=== PATIENT | female | born 1965 | race Caucasian/White ===

== ENCOUNTER 2018-01-08 14:39 | Emergency (ER) | payer OTHER ==
[2018-01-08] MEDS: IBUPROFEN 600 MG TAB PO (16:29)
== END 2018-01-08 17:15 | disposition home or self-care (01) ==
LOC: FTE 14:39
DX: B34.9 Viral infection, unspecified (principal)
CPT/HCPCS: 71045; 87400; 99283-25

== ENCOUNTER 2018-01-12 15:03 | Emergency (ER) | payer OTHER | END 2018-01-12 20:38 | disposition home or self-care (01) | LOC: FTE 15:03 | DX: J06.9 Acute upper respiratory infection, unspecified (principal) | CPT/HCPCS: 71045; 99284-25 ==